=== PATIENT | female | born 1945 | race Caucasian/White ===

== ENCOUNTER → 2018-11-01 | Outpatient (CLI) | payer MEDICARE, BC ==
--- NOTE | 2018-11-01 18:56 | REP ---
Left ankle series: Five views: History: Pain. Findings: Five views of the left ankle demonstrate some Achilles calcaneal spurring. There is mild tibiotalar spurring and fibulotalar spurring consistent with osteoarthritis. No erosive change is seen. There is some soft tissue swelling about the lateral malleolus. No fracture is seen. Impression: Soft-tissue swelling about the lateral malleolus. Tibiotalar osteoarthritic spurring. Achilles calcaneal spurring. No acute bony abnormality seen. Electronically Signed by Boston Ceballos MD 11/02/2018 08:04 A
== END ==
LOC: M WUC 15:00
PROVIDERS: ATTEND Physician Assistant
DX: M77.32 Calcaneal spur, left foot (principal); M25.472 Effusion, left ankle; M19.072 Primary osteoarthritis, left ankle and foot